=== PATIENT | female | born 1935 | race Caucasian/White ===

== ENCOUNTER → 2017-08-03 | Outpatient (CLI) | payer MEDICARE, BC ==
[~2017-08-03] MED LIST: CALCIUM + D 6001 TA1 PO; NORCO 325 MG-7.1 TAB PO
== END ==
LOC: MC.RAD 08:54
DX: Z01.89 Encounter for other specified special examinations (principal)

== ENCOUNTER → 2017-08-10 | Outpatient (CLI) | payer MEDICARE, BC | LOC: MC.RAD 10:20 | DX: Z12.31 Encounter for screening mammogram for malignant neoplasm of breast (principal) ==

== ENCOUNTER → 2018-07-27 | Outpatient (CLI) | payer MEDICARE, BC | LOC: COL.VAS 07:49 | DX: I65.23 Occlusion and stenosis of bilateral carotid arteries (principal); I70.8 Atherosclerosis of other arteries ==

== ENCOUNTER → 2018-08-08 | Outpatient (CLI) | payer MEDICARE, BC | LOC: COL.RAD 07:53 | DX: I77.1 Stricture of artery (principal); K76.9 Liver disease, unspecified; M95.4 Acquired deformity of chest and rib; R91.8 Other nonspecific abnormal finding of lung field | CPT/HCPCS: Q9967 ==

== ENCOUNTER → 2018-08-15 | Outpatient (CLI) | payer MEDICARE, BC | LOC: MC.RAD 11:23 | DX: Z12.31 Encounter for screening mammogram for malignant neoplasm of breast (principal) ==

== ENCOUNTER → 2019-09-10 | Outpatient (CLI) | payer MEDICARE, BC | LOC: MC.RAD 09:11 | DX: Z12.31 Encounter for screening mammogram for malignant neoplasm of breast (principal) ==

== ENCOUNTER → 2020-08-25 | Outpatient (CLI) | payer MEDICARE, BC | LOC: COL.VAS 13:28 | DX: I65.23 Occlusion and stenosis of bilateral carotid arteries (principal); I70.8 Atherosclerosis of other arteries ==

== ENCOUNTER → 2020-09-11 | Outpatient (CLI) | payer MEDICARE, BC | LOC: MC.RAD 10:23 | DX: Z12.31 Encounter for screening mammogram for malignant neoplasm of breast (principal) ==

== ENCOUNTER → 2021-09-13 | Outpatient (CLI) | payer MEDICARE, BC | LOC: MC.RAD 10:45 | DX: Z12.31 Encounter for screening mammogram for malignant neoplasm of breast (principal) ==

== ENCOUNTER → 2021-10-04 | Outpatient (CLI) | payer MEDICARE, BC ==
[~2021-10-04] MED LIST changes: +NORCO 325 MG-51 TAB PO
== END ==
LOC: COL.VAS 12:01
DX: I35.0 Nonrheumatic aortic (valve) stenosis (principal); I51.7 Cardiomegaly

== ENCOUNTER 2021-10-05 19:11 | Emergency (ER) | payer MEDICARE, BC ==
[~2021-10-05] VITALS: Ht 157.5 cm; Wt 51.4 kg
[~2021-10-05 19:11] MED LIST changes: -NORCO 325 MG-51 TAB PO
[2021-10-05 19:27] VITALS: BP 112/71; PULSE 78; TEMP 98.2
[2021-10-05] MEDS ORDERED: NORCO 325 MG-51 TAB PO (21:34)
== END 2021-10-05 21:44 | disposition home or self-care (01) ==
LOC: COL.ER 19:11
DX: S42.211A Unspecified displaced fracture of surgical neck of right humerus, initial encounter for closed fracture (principal); S42.251A Displaced fracture of greater tuberosity of right humerus, initial encounter for closed fracture; W01.0XXA Fall on same level from slipping, tripping and stumbling without subsequent striking against object, initial encounter
CPT/HCPCS: J2270

== ENCOUNTER 2022-01-23 11:48 | Inpatient (IN) | payer MEDICARE, BC ==
[~2022-01-23] VITALS: Ht 157.5 cm; Wt 50.9 kg
[~2022-01-23 11:48] MED LIST changes: +NORCO 325 MG-51 TAB PO
[2022-01-23 12:13] LABS: BASO % 0.4 % (0.0-2.0); EOS # 0.1 K/mm3 (0.0-0.7); EOS % 1.2 % (0.0-4.0); GRAN # 7.7 K/mm3 (1.4-6.5); LYMPH # 1.6 K/mm3 (1.2-3.4); LYMPH % 15.7 % (20.0-51.0); MEAN CELL VOLUME 89 fl (80.0-100.0); MEAN CORPUSCULAR HEMOGLOBIN 29 pg (27-31); MEAN CORPUSCULAR HGB CONC 33 g/dl (33.0-37.0); MEAN PLATELET VOLUME 9.5 fl (7.4-10.4); MONO # 0.7 K/mm3 (0.1-0.6); PLATELET COUNT 292 K/mm3 (130-400); RED BLOOD COUNT 4.14 M/mm3 (4.10-5.30); REDCELL DISTRIBUTION WIDTH-CV 13.8 % (11.5-14.5)
[2022-01-23] MEDS ORDERED: LIPITOR20 MG PO (12:17)
[2022-01-23] MEDS ORDERED: FOSAMAX 35MG35 MG PO (12:17)
[2022-01-23 12:18] LABS: HEMATOCRIT 36.9 % (37.0-47.0)
[2022-01-23] MEDS ORDERED: NEXIUM 20MG20 MG PO (12:18)
[2022-01-23] MEDS ORDERED: ZYRTEC 10MG10 MG PO (12:20)
[2022-01-23 12:31] LABS: BILIRUBIN,TOTAL 0.5 mg/dL (0.2-1.2); CALCIUM 9.1 mg/dL (8.4-10.2); CREATININE, serum 0.71 mg/dL (0.57-1.11); POTASSIUM 4.1 mmol/L (3.5-4.5); TOTAL PROTEIN 7.1 gm/dL (6.2-8.1)
[2022-01-23 12:40] LABS: TROPONIN-I 1.795 ng/mL (0.00-0.033)
[2022-01-23 12:55] LABS: PROTHROMBIN TIME 11.3 SECONDS (9.7-12.8)
[2022-01-23 15:32] VITALS: BP 92/59; PULSE 80; TEMP 97.8
--- NOTE | 2022-01-23 16:55 | NUR ---
DR GUTIERREZ AND DR FLORES CONTACTED WITH CRITICAL [facility]. PATIENT IS NOT COMPLAINING OF ANY CHEST PAIN AT THIS TIME AND VITALS ARE STABLE. NO ORDERS RECIEVED AT THIS TIME
--- NOTE | 2022-01-23 20:00 | NUR ---
HEP Xa 0.44, heparin gtt down to 5cc/hr
[2022-01-23 20:17] VITALS: BP 98/44; PULSE 83; TEMP 97.9
--- NOTE | 2022-01-23 20:40 | NUR ---
Bp 98/44, notified Krystal CARDOZA, will hold metoprolol tonight
[2022-01-24] VITALS (11 sets, daily range): BP systolic 83–103; BP diastolic 46–80; PULSE 78–92; TEMP 97.1–98.3
[2022-01-24 02:14] LABS: BASO # 0.1 K/mm3 (0.0-0.2); BASO % 0.5 % (0.0-2.0); EOS # 0.2 K/mm3 (0.0-0.7); EOS % 2.3 % (0.0-4.0); GRAN # 5.8 K/mm3 (1.4-6.5); GRAN % 58.7 % (42.2-75.2); HEMATOCRIT 33.3 % (37.0-47.0); HEMOGLOBIN 10.8 g/dl (12.5-16.0); LYMPH # 3.1 K/mm3 (1.2-3.4); LYMPH % 31.5 % (20.0-51.0); MEAN CELL VOLUME 89 fl (80.0-100.0); MEAN CORPUSCULAR HEMOGLOBIN 29 pg (27-31); MEAN CORPUSCULAR HGB CONC 32 g/dl (33.0-37.0); MEAN PLATELET VOLUME 9.7 fl (7.4-10.4); MONO # 0.7 K/mm3 (0.1-0.6); MONO % 6.6 % (1.7-9.3); PLATELET COUNT 266 K/mm3 (130-400); RED BLOOD COUNT 3.74 M/mm3 (4.10-5.30)
--- NOTE | 2022-01-24 02:30 | NUR ---
HEP Xa 0.22, heparin gtt up to 6.5cc/hr
[2022-01-24 02:31] LABS: ALBUMIN 3.3 gm/dL (3.4-4.8); CALCIUM 8.8 mg/dL (8.4-10.2); CHOLESTEROL RISK RATIO 2.3; CREATININE, serum 0.7 mg/dL (0.57-1.11); PHOSPHOROUS 3.5 mg/dL (2.3-4.7)
--- NOTE | 2022-01-24 06:20 | NUR ---
pt NPO for heart cath this am, BP this am 97/52, up to restroom ad roxy, no c/o chest pain since admission, nitro patch on chest. Heparin gtt @ 6.5 cc/hr, next hep Xa due @0830
[2022-01-24 08:38] LABS: INR 1.1 (0.8-3.0); PROTHROMBIN TIME 12.1 SECONDS (9.7-12.8)
[2022-01-24 08:41] LABS: PARTIAL THROMBOPLASTIN TIME 55.8 SECONDS (26.0-37.0)
--- NOTE | 2022-01-24 09:26 | NUR ---
See merge for all medication administration, vital sign, assessment, and intervention times.
--- NOTE | 2022-01-24 12:52 | NUR ---
driver utility worker met with patient to discuss discharge plan. Patients Cecilio ([phone]) and son Kaden ([phone]) present at bedside. Patient states that she lives at home with her Cecilio. She is independent with all of her ADL's. She states that she does not utilize any DME equipment to assist with ambulation. Patient has no home oxygen needs. PCP is Dr. Null and she utilizes [facility] for perscriptions with no cost difficulty. She states that she has a [employer] established listing Cecilio as her primary agent and Kaden as her secondary agent. Patient is planning on returning home once medically ready. Patient still needing to be eval'd by PT/OT. Discharge plan: Home; pending PT/OT eval
--- NOTE | 2022-01-24 21:49 | NUR ---
Patient assessed at approximately 2044. Alert and oriented x 4, and able to make needs known. Denies having pain and discomfort. Peripheral INT to left forearm flushed. Right radial heart cath site without hematoma and pain. Dressing CDI. Splint in place for protection. Denies SOB and dyspnea. LS CTA. HRR. Telemetry in place. Denies chest pain and discomfort. BSAx4. No edema. Voices no questions, needs, or concerns at this time. In bed with call light within reach.
--- NOTE | 2022-01-24 22:11 | NUR ---
NANI Rice notified around 2044 that BPs were soft and Metoprolol was held. Ok with hold. No new orders at that time.
[2022-01-25 04:36] VITALS: BP 122/58; PULSE 89; TEMP 97.9
--- NOTE | 2022-01-25 05:48 | NUR ---
Patient has been resting in bed with call light within reach. Has denied pain and discomfort this shift. Voices no questions, needs, or concerns at this time.
[2022-01-25] MEDS ORDERED: ASPIRIN E.C. 8181 MG PO (07:33)
[2022-01-25] MEDS ORDERED: LIPITOR 40MG TA40 MG PO (07:33)
[2022-01-25 08:30] VITALS: BP 123/75; PULSE 92; TEMP 97.3
--- NOTE | 2022-01-25 09:27 | NUR ---
Scheduled medications given. Shift assessment performed. Patient denies any pain, discomfort, SOA, or further needs at this time. VSS. Patient A&O. Family at the bedside. Tele monitor in use.
[2022-01-25 11:56] VITALS: BP 99/56; PULSE 88; TEMP 97.5
--- NOTE | 2022-01-25 13:30 | NUR ---
Patient deemed fit for discharge. Discharge education/instructions given. All questions answered. IV DC'd, catheter intact, no signs of phlebitis. Patient denies any pain, discomfort, SOA, or further needs at this time. VSS. Patient A&O. Patient ambulated from building escorted by [facility] Staff. transporting home.
== END 2022-01-25 13:30 | disposition home or self-care (01) | DRG 281 ==
LOC: COL.ER 11:48 → MEDICAL 12:54
PROVIDERS: Nurse Practitioner; Student in an Organized Health Care Education/Training Program; ADMIT Internal Medicine
PROC: 4A023N7 Measurement of Cardiac Sampling and Pressure, Left Heart, Percutaneous Approach (ICD-10-PCS; principal; 2022-01-24)
PROC: B2111ZZ Fluoroscopy of Multiple Coronary Arteries using Low Osmolar Contrast (ICD-10-PCS; 2022-01-24)
DX: I21.4 Non-ST elevation (NSTEMI) myocardial infarction (principal); I51.81 Takotsubo syndrome; E78.00 Pure hypercholesterolemia, unspecified; K21.9 Gastro-esophageal reflux disease without esophagitis; M81.0 Age-related osteoporosis without current pathological fracture; I73.9 Peripheral vascular disease, unspecified; I25.10 Atherosclerotic heart disease of native coronary artery without angina pectoris; I35.0 Nonrheumatic aortic (valve) stenosis; I95.9 Hypotension, unspecified
CPT/HCPCS: 99223-AI; 99232-AI; 99239; J1644; J3010; Q9967

== ENCOUNTER → 2022-05-03 | Outpatient (CLI) | payer MEDICARE, BC ==
[~2022-05-03] MED LIST changes: +ASPIRIN E.C. 8181 MG PO; +FOSAMAX 35MG35 MG PO; +LIPITOR 40MG TA40 MG PO; +LIPITOR20 MG PO; +NEXIUM 20MG20 MG PO; +ZYRTEC 10MG10 MG PO
== END ==
LOC: COL.VAS 12:10
DX: I35.0 Nonrheumatic aortic (valve) stenosis (principal); I51.81 Takotsubo syndrome

== ENCOUNTER → 2022-06-17 | Outpatient (CLI) | payer MEDICARE, BC | LOC: COL.VAS 11:10 | DX: I65.23 Occlusion and stenosis of bilateral carotid arteries (principal) ==

== ENCOUNTER 2024-01-17 00:09 | Emergency (ER) | payer MEDICARE, BC ==
[~2024-01-17] VITALS: Ht 157.5 cm; Wt 52.3 kg
[2024-01-17] MEDS ORDERED: Loperamide 2 MG CAP PO ONE (01:00)
[2024-01-17] MEDS ORDERED: NS 1,000 ML IV ONE (01:00)
[2024-01-17 01:02] LABS: BASO # 0.1 K/mm3 (0.0-0.2); BASO % 0.3 % (0.0-2.0); EOS # 0.5 K/mm3 (0.0-0.7); EOS % 2.5 % (0.0-4.0); GRAN # 14.7 K/mm3 (1.4-6.5); GRAN % 81.1 % (42.2-75.2); HEMATOCRIT 41.4 % (37.0-47.0); HEMOGLOBIN 13.6 g/dl (12.5-16.0); LYMPH # 1.6 K/mm3 (1.2-3.4); LYMPH % 8.5 % (20.0-51.0); MEAN CELL VOLUME 94 fl (80.0-100.0); MEAN CORPUSCULAR HEMOGLOBIN 31 pg (27-31); MEAN CORPUSCULAR HGB CONC 33 g/dl (33.0-37.0); MEAN PLATELET VOLUME 10.6 fl (7.4-10.4); MONO # 1.3 K/mm3 (0.1-0.6); MONO % 7.2 % (1.7-9.3); PLATELET COUNT 210 K/mm3 (130-400); REDCELL DISTRIBUTION WIDTH-CV 12.4 % (11.5-14.5)
[2024-01-17 01:17] LABS: ALBUMIN 4.2 g/dL (3.4-4.8); BILIRUBIN,TOTAL 0.6 mg/dL (0.2-1.2); CALCIUM 10.2 mg/dL (8.4-10.2); CREATININE, serum 0.99 mg/dL (0.57-1.11); POTASSIUM 4.1 mEq/L (3.5-4.5); TOTAL PROTEIN 7.9 g/dl (6.2-8.1)
[2024-01-17 01:23] LABS: TROPONIN-I 0.011 ng/mL (0.00-0.033)
[2024-01-17] MEDS ORDERED: CRESTOR 10MG10 MG PO (01:27)
[2024-01-17] MEDS ORDERED: COREG 3.123.125 MG/T PO (01:27)
[2024-01-17 01:58] VITALS: BP 143/58; PULSE 98
== END 2024-01-17 01:58 | disposition home or self-care (01) ==
LOC: COL.ER 00:09
PROVIDERS: Personal Emergency Response Attendant
DX: R55 Syncope and collapse (principal); R19.7 Diarrhea, unspecified; I25.2 Old myocardial infarction; Z95.5 Presence of coronary angioplasty implant and graft
CPT/HCPCS: J7030